=== PATIENT | male | born 1980 | race Caucasian/White ===

== ENCOUNTER 2017-06-10 22:09 | Emergency (ER) | payer OTHER ==
[2017-06-10 22:20] VITALS: BP 134/73
[2017-06-10] MEDS ORDERED: oxyCODONE/Acetamin 5/325 MG* TAB PO ONE (22:39)
[2017-06-11] MEDS ORDERED: Lidocaine 1% INJ* 10 MG/ML 30 ML SDV INJ ONE (00:28)
[2017-06-11] MEDS ORDERED: Lidocaine 1% INJ* 10 MG/ML 30 ML SDV ONE (00:30)
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
== END 2017-06-11 01:30 | disposition home or self-care (01) ==
LOC: ED 22:09
DX: S11.91XA Laceration without foreign body of unspecified part of neck, initial encounter (principal); S01.311A Laceration without foreign body of right ear, initial encounter; S01.21XA Laceration without foreign body of nose, initial encounter; Y09 Assault by unspecified means; Y93.9 Activity, unspecified; Y92.149 Unspecified place in prison as the place of occurrence of the external cause
CPT/HCPCS: 12015; 70450; 70486; 72125; 96374; 99282; A9270-GY; J2001